=== PATIENT | male | born 1975 | race American Indian/Alaskan Native ===

== ENCOUNTER 2018-01-15 01:06 | Emergency (ER) | payer OTHER ==
[2018-01-15] MEDS ORDERED: Alum-Mag Hydrox-Simethicone Susp (30 mL) PO STA (01:26)
[2018-01-15] MEDS ORDERED: Atrop/Hyosc/Scopal/PB Elixir (120 ml) PO STA (01:26)
--- NOTE | 2018-01-15 01:30 | ED PDOC ---
Arrival/HPI - General Time Seen by Provider: 01/15/18 01:17 Historian: Patient - History of Present Illness Narrative History of Present Illness (Text): 01/15/18 01:24 42 year old male, whose past medical history includes ulcers, presents to the Emergency department complains of "heart attack-like symptoms" including chest pain, shortness of breath, left arm pain, and nausea for the last two months. Patient has been evaluated by PMD, precast concrete products installer, and digital proofing and platemaker. Material Spreader informed the patient that he has H. pylori and placed him on antibiotics x2 a day. Helper Metal Hanging did echcardiogram and nuclear stress test which were both negative. Material Spreader states patient's pain is not from the stomach and precast concrete products installer states patient's pain is not from the heart. Tonight, the patient was laying down and trying to sleep when he experienced the same chest pain but not the left arm pain. Patient is frustrated and would like to figure out the cause of his symptoms. Patient is also complaining of intermittent and incessant headaches for the last two months. Patient denies any fever, chills, vomiting, diarrhea, urinary symptoms, back pain, neck pain, dizziness, or any other complaints. Time/Duration: > month (2 months) Symptom Onset: Gradual Symptom Course: Unchanged Context: Home Past Medical History - Provider Review Nursing Documentation Reviewed: Yes - Infectious Disease Hx of Infectious Diseases: None - Tetanus Immunization Tetanus Immunization: Unknown - Past Medical History Past Medical History: No Previous - Psychiatric Hx Depression: No Hx Emotional Abuse: No Hx Physical Abuse: No Hx Substance Use: No - Past Surgical History Past Surgical History: No Previous - Suicidal Assessment Feels Threatened In Home Enviroment: No Family/Social History - Physician Review Nursing Documentation Reviewed: Yes Family/Social History: Unknown Family HX Hx Alcohol Use: No Hx Substance Use: No Hx Substance Use Treatment: No Allergies/Home Meds Allergies/Adverse Reactions: Allergies No Known Allergies Allergy (Verified 04/22/12 12:26) Home Medications: Home Meds Medication Instructions Recorded Confirmed Amoxicillin [Amoxil 500 mg Cap] 500 mg PO BID 01/15/18 01/15/18 Clarithromycin [Biaxin Filmtab] 500 mg PO BID 01/15/18 01/15/18 Lansoprazole [Prevacid] 30 mg PO BID 01/15/18 01/15/18 Review of Systems - Physician Review All systems were reviewed & negative as marked: Yes - Review of Systems Constitutional: absent: Fevers, Night Sweats Respiratory: SOB Cardiovascular: Chest Pain Gastrointestinal: Nausea. absent: Diarrhea, Vomiting Genitourinary Male: absent: Dysuria Musculoskeletal: absent: Back Pain, Neck Pain Neurological: Headache. absent: Dizziness Physical Exam Vital Signs Reviewed: Yes Vital Signs Temp Pulse Resp BP Pulse Ox 01/15/18 01:33 98.2 F 68 18 140/93 H 100 - Systems Exam Head: Present: Atraumatic, Normocephalic Pupils: Present: PERRL Extroacular Muscles: Present: EOMI Conjunctiva: Present: Normal Mouth: Present: Moist Mucous Membranes Neck: Present: Normal Range of Motion Respiratory/Chest: Present: Clear to Auscultation, Good Air Exchange. No: Respiratory Distress, Accessory Muscle Use Cardiovascular: Present: Regular Rate and Rhythm, Normal S1, S2. No: Murmurs Abdomen: No: Tenderness, Distention, Peritoneal Signs Back: Present: Normal Inspection Upper Extremity: Present: Normal Inspection. No: Cyanosis, Edema Lower Extremity: Present: Normal Inspection. No: Edema Neurological: Present: GCS=15, CN II-XII Intact, Speech Normal Skin: Present: Warm, Dry, Normal Color. No: Rashes Psychiatric: Present: Alert, Oriented x 3, Normal Insight, Normal Concentration Medical Decision Making ED Course and Treatment: 01/15/18 01:32 Impression: 42 year old male presents to the Emergency department complaining of chest pain , shortness of breath, nausea, left arm pain and headaches for two months. Differential Diagnosis included but are not limited to: GERD Plan: -- CT scan of the head -- Chest xray -- EKG -- Maalox Plus, Elixir, Pepcid, Toradol, Lidocaine, and Zofran -- Reassess and disposition Prior Visits: Notes and results from previous visits were reviewed. Progress Notes: - Lab Interpretations Lab Results: 01/15/18 01:46 01/15/18 01:46 Lab Results 01/15/18 01:46: Sodium 142, Potassium 4.1, Chloride 102, Carbon Dioxide 29, Anion Gap 16, BUN 14, Creatinine 1.1, Est GFR ( Amer) > 60, Est GFR (Non- Af Amer) > 60, Random Glucose 99, Calcium 9.4, Total Bilirubin 0.2, AST 19, ALT 32, Alkaline Phosphatase 45, Lactate Dehydrogenase 285 L, Total Creatine Kinase 118, Troponin I < 0.01, Total Protein 7.1, Albumin 4.2, Globulin 3.0, Albumin/ Globulin Ratio 1.4, Lipase 108 01/15/18 01:46: PT 12.6 H, INR 1.10 H 01/15/18 01:46: WBC 5.6, RBC 4.47, Hgb 12.9 L, Hct 38.2 L, MCV 85.5, MCH 28.9, MCHC 33.8, RDW 13.6, Plt Count 214, MPV 10.5, Gran % 48.4 L, Lymph % (Auto) 46.2 H, Izard % (Auto) 4.8, Eos % (Auto) 0.4 L, Baso % (Auto) 0.2, Gran # 2.70, Lymph # (Auto) 2.6, Izard # (Auto) 0.3, Eos # (Auto) 0.0, Baso # (Auto) 0.01 - RAD Interpretation Narrative RAD Interpretations (Text): 01/15/18 02:23 CXR Impression: As read by me, no pneumothorax, no pneumonia, no cardiomegaly, no infiltrates. 01/15/18 02:43 CT Head Without Intravenous Contrast FINDINGS: Brain: Unremarkable. No hemorrhage. No significant white matter disease. No edema. Ventricles: Unremarkable. No ventriculomegaly. Bones/joints: Unremarkable. No acute fracture. Soft tissues: Unremarkable. Sinuses: Unremarkable as visualized. No acute sinusitis. Mastoid air cells: Unremarkable as visualized. No mastoid effusion. Other findings: No acute findings. IMPRESSION: No acute findings. Radiology Orders: 01/15/18 01:26 HEAD W/O CONTRAST [CT] Stat CHEST PORTABLE [RAD] Stat - EKG Interpretation EKG Interpretation (Text): 01/15/18 01:35 EKG: Ordered, reviewed, and independently interpreted the EKG. Rhythm : NSR Interpretation : No ST-segment elevations or depressions, no T-wave inversions, normal intervals. Interpreted by ED Physician: Yes Type: 12 lead EKG - Medication Orders Current Medication Orders: Discontinued Medications Al Hydrox/Mg Hydrox/Simethicone (Maalox Plus 30 Ml) 30 ml PO STAT STA Stop: 01/15/18 01:27 Last Admin: 01/15/18 02:27 Dose: 30 ml Belladonna/Phenobarbital ( Elixir) 5 ml PO STAT STA Stop: 01/15/18 01:27 Last Admin: 01/15/18 02:28 Dose: 5 ml Famotidine (Pepcid) 20 mg IVP STAT STA Stop: 01/15/18 01:27 Last Admin: 01/15/18 02:27 Dose: 20 mg IVP Administration Document 01/15/18 02:27 JADA (Rec: 01/15/18 02:27 J[facility] [id number]) Charges for Administration # of IVP Administrations 1 Ketorolac Tromethamine (Toradol) 30 mg IVP STAT STA Stop: 01/15/18 01:27 Last Admin: 01/15/18 02:27 Dose: 30 mg MAR Pain Assessment Document 01/15/18 02:27 JADA (Rec: 01/15/18 02:27 JADA [facility] [id number]) Pain Reassessment Is this a pain reassessment? No IVP Administration Document 01/15/18 02:27 JADA (Rec: 01/15/18 02:27 JADA [facility] [id number]) Charges for Administration # of IVP Administrations 1 Lidocaine HCl (Lidocaine 2% Viscous) 15 ml MM STAT STA Stop: 01/15/18 01:27 Last Admin: 01/15/18 02:28 Dose: 15 ml Ondansetron HCl (Zofran Inj) 4 mg IVP STAT STA Stop: 01/15/18 01:27 Last Admin: 01/15/18 02:27 Dose: 4 mg IVP Administration Document 01/15/18 02:27 JADA (Rec: 01/15/18 02:27 JADA [facility] [id number]) Charges for Administration # of IVP Administrations 1 - Scribe Statement The provider has reviewed the documentation as recorded by the Chani Conway Provider Scribe Attestation: All medical record entries made by the Scribe were at my direction and personally dictated by me. I have reviewed the chart and agree that the record accurately reflects my personal performance of the history, physical exam, medical decision making, and the department course for this patient. I have also personally directed, reviewed, and agree with the discharge instructions and disposition. Disposition/Present on Arrival - Present on Arrival Any Indicators Present on Arrival: No History of DVT/PE: No History of Uncontrolled Diabetes: No Urinary Catheter: No History of Decub. Ulcer: No History Surgical Site Infection Following: None - Disposition Have Diagnosis and Disposition been Completed?: Yes Diagnosis: Atypical chest pain, Headache Disposition: HOME/ ROUTINE Disposition Time: 03:14 Patient Plan: Discharge Condition: GOOD Discharge Instructions (ExitCare): Chest Pain (ED), Tension Headache (DC), Chest Pain That Is Not Caused by the Heart (DC) Additional Instructions: Mr Mattson- All of your testing tonight is normal. Many of y our symptoms can be stress related or induced. Please follow up with your regular physician. Return to us if any problems. Angel- Dr. Franky Burroughs
[2018-01-15 01:33] VITALS: TEMP 98.2; O2SAT 100
[2018-01-15 02:07] LABS: ALB/GLOB RATIO 1.4 (1.1-1.8); ALBUMIN 4.2 g/dL (3.0-4.8); ALT/SGPT 32 U/L (7-56); AST/SGOT 19 U/L (17-59); BLOOD UREA NITROGEN 14 mg/dL (7-21); CALCIUM 9.4 mg/dL (8.4-10.5); GFR NON-AFRICAN AMERICAN > 60; LIPASE 108 U/L (23-300)
[2018-01-15 02:12] LABS: INR 1.1 (0.93-1.08); PROTHROMBIN TIME 12.6 SECONDS (9.4-12.5)
[2018-01-15 02:13] LABS: BASO # 0.01 K/mm3 (0.0-2.0); BASO % 0.2 % (0.0-3.0); EOS % 0.4 % (1.5-5.0); GRAN # 2.7 (1.4-6.5); GRAN % 48.4 % (50.0-68.0); HEMOGLOBIN 12.9 g/dL (14.0-18.0); LYMPH # 2.6 (1.2-3.4); LYMPH % 46.2 % (22.0-35.0); MEAN CELL VOLUME 85.5 fl (80.0-105.0); MEAN CORPUSCULAR HEMOGLOBIN 28.9 pg (25.0-35.0); MEAN CORPUSCULAR HGB CONC 33.8 g/dl (31.0-37.0); MEAN PLATELET VOLUME 10.5 fl (7.0-11.0); MONO # 0.3 (0.1-0.6); MONO % 4.8 % (1.0-6.0); RBC 4.47 10^6/uL (3.5-6.1); RED CELL DISTRIBUTION WIDTH 13.6 % (11.5-14.5); WHITE BLOOD COUNT 5.6 10^3/ul (4.5-11.0)
[2018-01-15 02:18] LABS: TROPONIN I < 0.01 ng/mL
[2018-01-15 03:43] VITALS: BP 142/88; PULSE 65; RESP 19
--- NOTE | 2018-01-15 08:40 | CT ---
PROCEDURE: CT HEAD WITHOUT CONTRAST. HISTORY: headaches COMPARISON: 04/22/2012 TECHNIQUE: Axial computed tomography images were obtained through the head/brain without intravenous contrast. Radiation dose: Total exam DLP = 816.93 mGy-cm. This CT exam was performed using one or more of the following dose reduction techniques: Automated exposure control, adjustment of the mA and/or kV according to patient size, and/or use of iterative reconstruction technique. FINDINGS: HEMORRHAGE: No intracranial hemorrhage. BRAIN: No mass effect or edema. No atrophy or chronic microvascular ischemic changes. VENTRICLES: Unremarkable. No hydrocephalus. CALVARIUM: Unremarkable. PARANASAL SINUSES: Unremarkable as visualized. No significant inflammatory changes. MASTOID AIR CELLS: Unremarkable as visualized. No inflammatory changes. OTHER FINDINGS: None. IMPRESSION: Normal CT of the Head. No intracranial mass, hemorrhage or evidence of acute infarct. Preliminary interpretation of this examination was reported by [facility] at 2:43 a.m. on 01/15/2018. There is concurrence of this report with the preliminary interpretation.
--- NOTE | 2018-01-15 08:59 | RAD ---
HISTORY: chest pain COMPARISON: No prior. FINDINGS: LUNGS: The lungs are well inflated and clear. PLEURA: No significant pleural effusion identified, no pneumothorax apparent. CARDIOVASCULAR: Normal. OSSEOUS STRUCTURES: No significant abnormalities. VISUALIZED UPPER ABDOMEN: Normal. OTHER FINDINGS: None. IMPRESSION: No active pulmonary disease.
--- NOTE | 2018-01-15 22:56 | CARD ---
APPROVED REPORT EKG Measurement Heart [id number] <Conclusion> Normal sinus rhythm Normal ECG
== END 2018-01-15 03:16 | disposition home or self-care (01) ==
LOC: ED 01:06
DX: R07.89 Other chest pain (principal); R51 Headache
CPT/HCPCS: 70450; 71045; 80053; 82550; 83615; 83690; 84484; 85025; 85610; 93005; 96374; 96375; 99283; J1885; J2405